=== PATIENT | male | born 2005 | race Caucasian/White ===

== ENCOUNTER 2023-04-27 19:47 | Emergency (ER) | payer OTHER ==
[2023-04-27 19:52] VITALS: RESP 18; TEMP 98.2; BMI 21.6
[2023-04-27] MEDS ORDERED: ACETAMINOPHEN 325 MG TABLET (FP) PO ONE (20:37)
[2023-04-27] MEDS ORDERED: ACETAMINOPHEN 325 MG TABLET (FP) ONE (20:41)
[2023-04-27 21:45] LABS: URINE APPEARANCE TURBID; URINE BILIRUBIN NEGATIVE (NEGATIVE); URINE COLOR YELLOW; URINE GLUCOSE (UA) NEGATIVE (NEGATIVE); URINE KETONE NEGATIVE (NEGATIVE); URINE LEUK ESTERASE NEGATIVE (NEGATIVE); URINE NITRITE NEGATIVE (NEGATIVE); URINE PROTEIN NEGATIVE (NEGATIVE)
[2023-04-27 22:07] LABS: BASO % 0.5 % (0-2.0); EOS % 0.9 % (0-4.5); HEMATOCRIT 49.4 % (35.4-49); HEMOGLOBIN 17.3 GM/dL (11.7-16.9); LYMPH % 28.2 % (8-40); MCH 29.2 pg (25.7-33.7); MEAN CELL VOLUME 83.4 fl (80-96); MEAN PLT VOLUME 8.4 fl (7.5-11.1); MONO % 7.2 % (3.8-10.2); NEUT % 63.2 % (42.8-82.8); PLATELET COUNT 306 10^3/uL (134-434); RBC 5.92 M/mm3 (4.00-5.60); RDW 14.1 % (11.9-15.9); WHITE BLOOD COUNT 8.8 K/mm3 (4.0-10.0)
[2023-04-27 22:13] LABS: POTASSIUM 4.1 mmol/L (3.5-5.1)
[2023-04-27 22:14] LABS: CALCIUM 8.8 mg/dL (8.5-10.1)
[2023-04-27 22:15] LABS: ALBUMIN 4.6 g/dl (3.4-5.0); BLOOD UREA NITROGEN 10.3 mg/dL (7-18)
[2023-04-27 22:18] LABS: CREATININE 1.2 mg/dL (0.55-1.3)
[2023-04-27 22:20] LABS: BILIRUBIN,TOTAL 1.6 mg/dL (0.2-1)
[2023-04-27 23:21] LABS: SYPHILIS W/ RPR CONF NON-REACTIVE (NONREACTIVE)
[2023-04-27] MEDS ORDERED: KETOROLAC TROMETHAMINE 15 MG/ML VIAL IVPUSH ONE (23:34)
[2023-04-27] MEDS ORDERED: KETOROLAC TROMETHAMINE 15 MG/ML VIAL ONE (23:36)
[2023-04-27 23:49] VITALS: BP 135/74; PULSE 84
[2023-04-27 23:50] LABS: HIV INTERPRETATION NEGATIVE (NEGATIVE)
== END 2023-04-27 23:49 | disposition home or self-care (01) ==
LOC: JER 19:47
PROC: 3E0333Z Introduction of Anti-inflammatory into Peripheral Vein, Percutaneous Approach (ICD-10-PCS; principal; 2023-04-27)
DX: N50.812 Left testicular pain (principal); R10.32 Left lower quadrant pain; N50.82 Scrotal pain; R11.0 Nausea; R14.2 Eructation; X50.0XXA Overexertion from strenuous movement or load, initial encounter
CPT/HCPCS: 36415; 74177-TC; 76870-TC; 80053; 81003; 85025; 86705; 86780; 86803; 87086; 87340; 87389; 87491; 87517; 87591; 99285-25; Q9967